=== PATIENT | female | born 1995 | race Caucasian/White ===

== ENCOUNTER 2018-04-01 14:36 | Outpatient (CLI) | payer BC ==
[2018-04-01 16:05] LABS: #Eosinphils 0.2 thou/uL (0.0-0.7); #Lymphocytes 2.2 thou/uL (1.20-3.40); #Monocytes 0.5 thou/uL (0.11-0.59); #Neutrophils 4.6 thou/uL (1.40-6.50); %Basophils 0.5 % (0.0-1.0); %Eosinophils 2.2 % (0.0-10.0); %Lymphocytes 29.9 % (28.0-48.0); %Monocytes 6.3 % (0.0-4.0); %Neutrophils 61.2 % (31.0-61.0); Hemoglobin 13.1 g/dL (12.0-16.0); Mean Corpuscular HGB CONC 33.5 g/dL (32.0-36.0); Mean Corpuscular Hemoglobin 28.7 pg (25.0-35.0); Mean Corpuscular Volume 85.8 fL (78.0-98.0); Mean Platelet Volume 9.4 fL (7.4-10.4); Platelet Count 253 thou/uL (130-400); RBC Distribution Width 12.1 % (11.5-14.5); Red Blood Cell (RBC) Count 4.56 mill/uL (4.00-5.20); White Blood Cell (WBC) Count 7.5 thou/uL (4.8-10.8)
[2018-04-01 16:09] LABS: BHCG - Serum Negative (NEGATIVE); Pregs Control Background? CLEAR/WHITE (CLR/WHITE); Pregs Control Bar Appear? YES (CONTROL BAR)
[2018-04-01 16:24] LABS: Anion Gap 12 mmol/L (10-20); BUN (Urea Nitrogen) 12 mg/dL (7.0-18.7); Calc. Creatinine Clearance 0 mL/min (70-130); Calcium 9.6 mg/dL (7.8-10.44); Carbon Dioxide 23 mmol/L (22-29); Chloride 107 mmol/L (98-107); Estimated GFR-MDRD Greater than 90; Glucose 99 mg/dL (70-105); Potassium 3.9 mmol/L (3.5-5.1); Sodium 138 mmol/L (136-145)
== END 2018-04-01 14:37 | disposition home or self-care (01) ==
LOC: LABBT 14:36
PROVIDERS: ATTEND Surgery
DX: Z01.812 Encounter for preprocedural laboratory examination (principal); K82.8 Other specified diseases of gallbladder
CPT/HCPCS: 80048; 84703; 85025

== ENCOUNTER 2018-04-10 05:46 | Day surgery (SDC) | payer BC ==
[2018-04-01 14:47] VITALS: BMI 38.4
[2018-04-10] MEDS ORDERED: CEFAZOLIN/Water 2 GM/20 ML SYRINGE ONE (06:06)
[2018-04-10] MEDS ORDERED: Midazolam HCl 2 mg/2 ml Vial ONE ×2 (07:13→07:48)
[2018-04-10] MEDS ORDERED: Fentanyl 100 MCG/2 ML VIAL ONE ×2 (07:13→09:36)
[2018-04-10] MEDS ORDERED: Bupivacaine/Epinephrine 0.25% 30 ML VIAL ONE (07:39)
[2018-04-10 07:51] LABS: ALT (SGPT) 34 U/L (8-55); AST (SGOT) 25 U/L (5-34); Albumin 4.1 g/dL (3.5-5.0); Alkaline Phosphatase 65 U/L (40-150); Anion Gap 11 mmol/L (10-20); BUN (Urea Nitrogen) 10 mg/dL (7.0-18.7); Bilirubin, Total 0.6 mg/dL (0.2-1.2); Calc. Creatinine Clearance 223 mL/min (70-130); Calcium 9.3 mg/dL (7.8-10.44); Carbon Dioxide 25 mmol/L (22-29); Chloride 105 mmol/L (98-107); Estimated GFR-MDRD Greater than 90; Globulin 3.1 g/dL (2.4-3.5); Glucose 99 mg/dL (70-105); Potassium 3.7 mmol/L (3.5-5.1); Protein, Total 7.2 g/dL (6.0-8.3); Sodium 137 mmol/L (136-145)
--- NOTE | 2018-04-10 09:42 | PDOC.OP ---
Operative Note - Operative Note Operative Note: PROCEDURE: Laparoscopic cholecystectomy SURGEON: Jo Bruce M.D. DATE OF PROCEDURE: PREOPERATIVE DIAGNOSIS: Cholelithiasis and cholecystitis POSTOPERATIVE DIAGNOSIS: Cholelithiasis and cholecystitis HISTORY: Patient with biliary colic symptoms and gallstones on ultrasound. Recommendation was made to proceed laparoscopic cholecystectomy for symptomatic relief. Preoperative LFTs were normal and her bile duct was not enlarged. FINDINGS: White walled gallbladder with moderate omental adhesions. PROCEDURE IN DETAIL: After informed consent was obtained and appropriate preoperative antibiotics were administered, the patient was taken to the operating room and placed in the supine position and general endotracheal anesthesia was administered. The stomach was decompressed with an OG tube and the abdomen was prepped and draped in standard sterile fashion. Local anesthesia was infused to the skin and subcutaneous tissues at the umbilical level. A transverse skin incision was made. The fascia was elevated and a Veress needle was placed into the abdominal cavity without difficulty. Opening pressure was less than 5 and carbon dioxide gas easily insufflated to an intra- abdominal pressure of 15, which the patient tolerated well. The Veress needle was withdrawn and a Boyden port advanced under direct vision. The abdominal cavity was carefully examined. There was no evidence of Veress needle or of trocar injury. Local anesthesia was infused to the skin and subcutaneous tissues at the epigastric, right upper quadrant, and right lateral abdominal sites and trocars were placed under direct vision of the laparoscope. The fundus of the gallbladder was grasped and retracted superiorly and the omental adhesions stripped inferiorly using careful electrocautery as necessary in the avascular plane. The infundibulum was grasped and retracted laterally. The serosa was stripped inferiorly at the level of the neck of the gallbladder exposing the cystic duct and artery which were traced clearly to their insertion in the gallbladder. Critical view of safety was obtained and the cystic duct and artery were clipped and divided between clips. The gallbladder was then dissected free of the gallbladder bed using hook electrocautery. Prior to complete removal of the gallbladder from the gallbladder bed, the area of the cystic duct and artery stumps was examined. The clips were in good position completely across these structures and there was no bleeding and no leakage of bile. The gallbladder was then placed into an EndoCatch bag and drawn out through the epigastric incision. The epigastric trocar was replaced and the operative site was dry with clips clearly traversing the cystic duct and artery stumps. There was no bleeding or spillage of bile. The epigastric trocar was removed and the fascia closed under direct laparoscopic vision with a 0 Vicryl suture on a GraNee needle in a [id number] manner with excellent technical result. The right upper quadrant and right lateral abdominal trocars were removed and hemostasis verified. Carbon dioxide gas was allowed to desufflate through the umbilical trocar which was then removed. The skin incisions were closed with 4-0 subcuticular Monocryl sutures and Dermabond dressings were placed. The patient was extubated and taken to the recovery room in good condition. There were no complications. ESTIMATED BLOOD LOSS: Minimal. SPECIMEN : Gallbladder and contents.
[2018-04-10] MEDS ORDERED: Dexamethasone 20 MG/5 ML VIAL ONE (14:44)
[2018-04-10] MEDS ORDERED: PROPOFOL 200 MG/20 ML VIAL ONE (14:44)
[2018-04-10] MEDS ORDERED: Ketorolac Tromethamine 30 MG/ML VIAL ONE (14:44)
[2018-04-10] MEDS ORDERED: Metoclopramide HCl 10 MG/2 ML VIAL ONE (14:44)
[2018-04-10] MEDS ORDERED: Glycopyrrolate 0.2 MG/ML 5 ML SYRINGE ONE (14:44)
[2018-04-10] MEDS ORDERED: Lidocaine 1% PF 5 ML VIAL ONE (14:44)
[2018-04-10] MEDS ORDERED: Ondansetron HCl/PF 4 MG/2 ML Vial ONE (14:44)
== END 2018-04-10 11:22 | disposition home or self-care (01) ==
LOC: SDC 05:46
PROVIDERS: ATTEND Surgery
PROC: 0FT44ZZ Resection of Gallbladder, Percutaneous Endoscopic Approach (ICD-10-PCS; principal; 2018-04-10)
DX: K81.1 Chronic cholecystitis (principal); K82.8 Other specified diseases of gallbladder; Z79.899 Other long term (current) drug therapy
CPT/HCPCS: 36415; 80053; 88304; 96374; J1100; J1885; J2001; J2250; J2405; J2704; J2765; J3010

== ENCOUNTER 2018-05-10 12:54 | Emergency (ER) | payer BC ==
[2018-05-10] MEDS ORDERED: Ondansetron PF 4 MG/2 ML Vial ONE (13:28)
[2018-05-10] MEDS ORDERED: Promethazine HCl 25 MG/ML VIAL ONE (14:54)
== END 2018-05-10 15:17 | disposition home or self-care (01) ==
LOC: ERS 12:54
DX: E86.0 Dehydration (principal); R11.2 Nausea with vomiting, unspecified; Z79.899 Other long term (current) drug therapy
CPT/HCPCS: 96361; 96374; 96375; J2405; J2550

== ENCOUNTER 2018-05-26 07:35 | Outpatient (CLI) | payer BC ==
--- NOTE | 2018-05-26 09:57 | ULT ---
ULTRASOUND ABDOMEN COMPLETE HISTORY: Prior cholecystectomy with a history of abdominal pain, nausea, vomiting. TECHNIQUE: Garcia-scale ultrasound evaluation of the liver, gallbladder, spleen, pancreas, common bile duct, kidne ys, abdominal aorta, and inferior vena cava (IVC). FINDINGS: Increased echotexture of the liver is seen without a focal mass. Gallbladder is surgically absent. Spleen is prominent in volume measuring greater than 15 cm in length, where visualized. The common d uct is normal at 3 mm. No acute renal pathology. The pancreas is obscured from view by bowel conten t not reliably assessed. There is also partial obscuration of the abdominal aorta limiting assessmen t due to persistent retroperitoneal bowel gas. IMPRESSION: 1. Status post cholecystectomy. 2. Increased echogenicity of the liver which relate to hepatic steatosis or hepatocellular disease. Correlate with liver function enzymes. POS: [facility]
== END 2018-05-26 07:36 | disposition home or self-care (01) ==
LOC: ULT 07:35
PROVIDERS: ATTEND Surgery
DX: R10.9 Unspecified abdominal pain (principal); K76.89 Other specified diseases of liver; Z90.49 Acquired absence of other specified parts of digestive tract
CPT/HCPCS: 76700

== ENCOUNTER 2018-06-12 12:14 | Outpatient (CLI) | payer BC ==
--- NOTE | 2018-06-12 15:23 | NM ---
NUCLEAR MEDICINE HEPATOBILIARY SCAN: Date: 06/12/18 HISTORY: 22-year-old female status post cholecystectomy in March 2018. New onset of nausea, emesis, and elev ated liver enzymes. Evaluate for bile leak. TECHNIQUE: IV injection of 5.3 mCi technetium-99m mebrofenin. Anterior dynamic scintigraphy of abdomen performed for 60 minutes. FINDINGS: There is normal uptake and washout of activity at the liver. Bowel activity is visualized by approxim ately 17 minutes, and progresses throughout the scan. No evidence of extravasation. No abnormal mebro fenin intra-abdominal fluid collection. Gallbladder is not visualized. IMPRESSION: 1. Negative for bile leak. 2. Negative for biliary obstruction. 3. Status post cholecystectomy. POS: [facility]
== END 2018-06-12 12:15 | disposition home or self-care (01) ==
LOC: NM 12:14
PROVIDERS: ATTEND Internal Medicine
DX: R11.2 Nausea with vomiting, unspecified (principal); R94.5 Abnormal results of liver function studies
CPT/HCPCS: 78226; A9537